=== PATIENT | male | born 2000 | race Caucasian/White ===

== ENCOUNTER → 2020-03-22 09:49 | Outpatient (BNVA) | payer MEDICAID, SELFPAY | PROVIDERS: Visit Provider Family Medicine | DX: Z00.00 Encounter for general adult medical examination without abnormal findings (principal); R43.8 Other disturbances of smell and taste | CPT/HCPCS: 80053; 80061; 84443; 85025 ==

== ENCOUNTER → 2022-11-14 13:47 | Outpatient (BNVA) | payer MEDICAID, SELFPAY | PROVIDERS: PCP Nurse Practitioner Family; Visit Provider Nurse Practitioner Family | DX: R50.9 Fever, unspecified (principal); R53.83 Other fatigue | CPT/HCPCS: 80053; 84443; 85025; 86308; 87071; 87426; 87880 ==